=== PATIENT | female | born 1990 | race Caucasian/White ===

== ENCOUNTER 2018-04-12 06:32 | Inpatient (IN) | payer BC ==
[2018-04-12] MEDS ORDERED: Lactated Ringer's 1,000 ML IV SCH (08:00)
[2018-04-12 08:14] VITALS: BMI 44.2
[2018-04-12] MEDS ORDERED: Lactated Ringer's 1,000 ML IV ONE (09:54)
[2018-04-12 10:33] LABS: BASO # 0.1 K/uL (0.0-0.2); BASO % 0.5 % (0.0-2.0); EOS # 0.1 K/uL (0.0-0.7); EOS % 0.5 % (0.0-4.0); HEMOGLOBIN 12.6 g/dL (12.0-16.0); LYMPH % 7.1 % (20.0-40.0); MEAN CELL VOLUME 86.9 fl (81.0-99.0); MEAN CORPUSCULAR HEMOGLOBIN 29.4 pg (27.0-31.0); MEAN CORPUSCULAR HGB CONC 33.8 g/dL (33.0-37.0); MEAN PLATELET VOLUME 11.2 fl (7.2-11.7); MONO # 0.5 K/uL (0.0-0.8); MONO % 3.4 % (0.0-10.0); NEUT # 12.3 K/uL (1.8-7.0); NEUT % 88.5 % (50.0-75.0); PLATELET COUNT 158 K/uL (130-400); RBC 4.28 Mil/uL (3.80-5.20); RED CELL DISTRIBUTION WIDTH 13.3 % (11.5-14.5); WHITE BLOOD COUNT 13.9 K/uL (4.8-10.8)
[2018-04-12] MEDS ORDERED: OXYTOCIN/0.9 % NS 20 UNIT/1,000 ML BAG IV SCH (11:45)
[2018-04-12] MEDS ORDERED: Oxytocin 30 UNIT 30 UNITS/500 ML BAG IV ONE (12:00)
[2018-04-12 12:22] LABS: LARGE PLATELETS PRESENT; LYMPHOCYTE 7 % (20-50); MONOCYTE 4 % (0-10); NEUTROPHIL 89 % (42-75); PLATELET ESTIMATE NORMAL (NORMAL); TOTAL CELLS COUNTED 100
[2018-04-12] MEDS ORDERED: Benzocaine/Menthol SPRAY TOP PRN (17:59)
[2018-04-13 06:29] LABS: MEAN CELL VOLUME 86.6 fl (81.0-99.0); MEAN CORPUSCULAR HEMOGLOBIN 29.5 pg (27.0-31.0); RBC 3.4 Mil/uL (3.80-5.20); RED CELL DISTRIBUTION WIDTH 13.5 % (11.5-14.5); WHITE BLOOD COUNT 13.7 K/uL (4.8-10.8)
[2018-04-13] MEDS ORDERED: Benzocaine/Menthol SPRAY TOP PRN (07:56)
--- NOTE | 2018-04-14 11:20 | OBPPN ---
Datetime: 04/14/2018 11:18 PP Pain Prov: Within normal limits PP Nausea Prov: Denies PP Flatus Prov: Yes PP Breasts Prov: Normal PP Heart Prov: Normal PP Lungs Prov: Normal PP Abdomen/Uterus Prov: Normal PP Lochia Prov: Normal PP Vulva/Perineum Prov: Normal PP CVA Tenderness Prov: Normal PP Extremities Prov: Normal PP Progress Prov: Normal PP Comments Phys Exam Prov: Abd: Soft, NT, BS- present UT- Firm PP Progress Note Prov: S/P , PPD#2 Clinically Stable. Plan: D/C Home Vital Signs Provider PP: Reviewed Datetime: 04/13/2018 09:16 PP Impression Prov: Normal progression PP Plan Prov: Continue present management
--- NOTE | 2018-04-14 11:23 | OBDCSUM ---
Datetime: 04/14/2018 11:19 Discharged to, Provider: Home Follow up at, Provider: OB Disch Instr Activity: Normal activity Disch Instr Diet: Regular Discharge Instructions, Provider: Routine instructions given Discharge Diagnosis, Provider: Term Delivered Discharge Time: 04/14/2018 11:20 Follow up in weeks, Provider: 4-6 weeks Disch Referrals: None Contraception discussed, Prov: Yes Discharge Comment, Provider: S/P , Clinically Stable Discharge Diagnosis Prov Other: S/P , Clinically Stable
[2018-04-14 19:13] VITALS: BP 119/68; PULSE 79; RESP 20; TEMP 98.3; O2SAT 98
== END 2018-04-14 12:50 | disposition home or self-care (01) | DRG 775 ==
LOC: H.EROB2 06:32 → H.L&D 08:20 → H.EROB2 09:53 → H.L&D 09:54 → H.OB/GYN 04-13 07:55
PROVIDERS: ADMIT Obstetrics & Gynecology Gynecology; ATTEND Obstetrics & Gynecology Gynecology
PROC: 10E0XZZ Delivery of Products of Conception, External Approach (ICD-10-PCS; principal; 2018-04-12)
PROC: 4A1HXCZ Monitoring of Products of Conception, Cardiac Rate, External Approach (ICD-10-PCS; 2018-04-12)
DX: O80 Encounter for full-term uncomplicated delivery (principal); Z37.0 Single live birth; Z3A.39 39 weeks gestation of pregnancy